=== PATIENT | male | born 1970 | race African-American/Black ===

== ENCOUNTER 2025-01-21 17:54 | Inpatient (IN) | payer MEDICARE, MEDICAID ==
[~2025-01-21] VITALS: Ht 182.9 cm; Wt 103.4 kg
[2025-01-21 17:57] VITALS: O2SAT 97
[2025-01-21] MEDS: PIPERACILLIN/TAZO 3.375G/50ML 50 ML IV ONE (19:03)
[2025-01-21] MEDS: SODIUM CHLORIDE 0.9% 1,000 ML IV ONE ×3 (19:03→23:30)
[2025-01-21] MEDS: KETOROLAC 15MG/ML VIAL IV ONE (19:04)
[2025-01-21] MEDS: ACETAMINOPHEN 500MG TABLET PO ONE (19:04)
[2025-01-21 19:07] LABS: BASOPHILS % 0.8 % (0.0-2.0); EOSINOPHILS % 0.2 % (0.0-5.0); HEMATOCRIT. 27.7 % (42.0-52.0); HEMOGLOBIN. 8.8 g/dL (14.0-18.0); LYMPHOCYTES % 17.6 % (20.0-50.0); MEAN PLATELET VOLUME 6.7 fl (7.4-10.4); MONOCYTES % 9.3 % (2.0-8.0); NEUTROPHILS % 72.1 % (40.0-76.0); PLATELET 627 x1000/uL (130-400); RED BLOOD CELL COUNT 3.48 mill/uL (4.7-6.1); RED CELL DISTRIBUTION WIDTH 18.8 % (11.6-14.6)
[2025-01-21 19:24] LABS: CREATININE 1.1 mg/dL (0.6-1.3); UREA NITROGEN BLOOD 16 mg/dL (9-23)
[2025-01-21 19:25] LABS: TROPONIN I HIGH SENSITIVITY 6 ng/L (3.0-53)
[2025-01-21 19:26] LABS: ASPARTATE AMINOTRANSFERASE 17 IU/L (<34); BILIRUBIN DIRECT < 0.1 mg/dL (<=3.0); BILIRUBIN TOTAL 0.2 mg/dL (0.1-1.0); INR 1.1; PROTEIN TOTAL 8.1 g/dL (6.0-8.3)
[2025-01-21] MEDS: VANCOMYCIN 1G PREMIX 200 ML IV ONE (20:18)
[2025-01-21] MEDS: SODIUM CHLORIDE 0.9% 500 ML IV ONE (20:29)
[2025-01-21] MEDS: MORPHINE SULFATE 4 MG/ML INJ (FOR IV/IM USE) IV ONE (20:30)
[2025-01-21] MEDS ORDERED: NOREPINEPHRINE 8 MG in DEXT 5% WATER 242 ML IV PRN (22:15)
[2025-01-21] MEDS: NOREPINEPHRINE 8MG/250ML PMX 250 ML IV PRN (22:27)
[2025-01-21] MEDS ORDERED: MAGNESIUM/ALUMINUM HYDROXIDE/SIMETHICONE 30ML UDC PO PRN (23:30)
[2025-01-21] MEDS ORDERED: NOREPINEPHRINE 32 MG in DEXT 5% WATER 218 ML IV PRN (23:30)
[2025-01-21] MEDS ORDERED: ONDANSETRON HCL 4MG/2ML INJ IV PRN (23:30)
[2025-01-21] MEDS ORDERED: CLONIDINE 0.1MG TABLET PO PRN (23:30)
[2025-01-21] MEDS ORDERED: PHENYLEPHRINE 50 MG in SODIUM CHLORIDE 0.9% 245 ML IV PRN (23:30)
[2025-01-21] MEDS ORDERED: IPRATROPIUM/ALBUTEROL 0.5-3(2.5)MG/3ML NEB HHN PRN (23:30)
[2025-01-21] MEDS ORDERED: GUAIFENESIN 200MG/10ML SUGAR FREE UDC PO PRN (23:30)
[2025-01-21] MEDS ORDERED: ACETAMINOPHEN 325MG TABLET PO PRN ×2 (23:30)
[2025-01-21] MEDS ORDERED: VASOPRESSIN 20 UNIT in SODIUM CHLORIDE 0.9% 99 ML IV PRN (23:30)
[2025-01-21 23:33] LABS: CLARITY URINE CLEAR (CLEAR); COLOR URINE YELLOW (YELLOW); GLUCOSE URINE NEGATIVE (NEGATIVE); KETONES URINE TRACE (NEGATIVE); LEUKOCYTE ESTERASE URINE 2+ (NEGATIVE); NITRITE URINE NEGATIVE (NEGATIVE); OCCULT BLOOD URINE 1+ (NEGATIVE); PH URINE 6.0 (4.5-8.0); PROTEIN URINE 1+ (NEGATIVE); SPECIFIC GRAVITY URINE 1.030 (1.005-1.030); UROBILINOGEN URINE 1.0 E.U./dL (0.2-1.0)
[2025-01-22] VITALS (48 sets, daily range): BP systolic 89–126; BP diastolic 48–91; PULSE 61–101; RESP 13–26; TEMP 36.5–36.8; O2SAT 94–100
[2025-01-22 00:20] LABS: SQUAMOUS EPITHELIAL CELL URINE FEW /lpf (RARE/1+)
[2025-01-22 00:21] LABS: BACTERIA URINE TRACE; WBC URINE 25-50 /hpf (0-2)
[2025-01-22] MEDS: ENOXAPARIN 120MG/0.8ML SYR SUBCUT SCH (02:29)
[2025-01-22] MEDS: VANCOMYCIN 1GM/200ML PMX (BAXTER) IV SCH ×2 (05:01→18:07)
[2025-01-22] MEDS: SODIUM CHLORIDE 0.9% 1,000 ML IV SCH (05:28)
[2025-01-22] MEDS: NOREPINEPHRINE 32 MG in DEXT 5% WATER 218 ML IV PRN (07:03)
[2025-01-22] MEDS: MAGNESIUM 1 G PREMIX 100 ML IV NR (09:26)
[2025-01-22] MEDS: PIPERACILLIN/TAZO 3.375G/50ML 50 ML IV SCH (09:26)
[2025-01-22] MEDS: DICLOFENAC SODIUM 1% GEL 50GM TOP SCH (09:28)
[2025-01-22] MEDS ORDERED: MIDODRINE HCL 5MG TABLET PO PRN (10:00)
[2025-01-22] MEDS ORDERED: TRAMADOL 50MG TABLET PO PRN (10:00)
[2025-01-22 10:51] LABS: CREATINE KINASE MB FRACTION 0.9 ng/mL (0.5-3.6); TROPONIN I HIGH SENSITIVITY 8 ng/L (3.0-53)
[2025-01-22 10:56] LABS: CREATININE 0.8 mg/dL (0.6-1.3); LDL CHOLESTEROL 48 mg/dL (5-100); T4 FREE 0.87 ng/dL (0.89-1.76); TRIGLYCERIDE 46 mg/dL (0-150); UREA NITROGEN BLOOD 13 mg/dL (9-23)
[2025-01-22] MEDS: OXYCODONE HCL 10MG TABLET PO PRN (13:34)
[2025-01-22 13:42] LABS: *AMPHETAMINES SCREEN URINE NEGATIVE (NEGATIVE); *BARBITURATES SCREEN URINE NEGATIVE (NEGATIVE); *BENZODIAZEPINES SCREEN URINE NEGATIVE (NEGATIVE); *COCAINE SCREEN URINE PRESUMPTIVE POSITIVE (NEGATIVE); CANNABINOID URINE SCREEN PRESUMPTIVE POSITIVE (NEGATIVE); METHADONE URINE SCREEN NEGATIVE (NEGATIVE); OPIATES URINE SCREEN PRESUMPTIVE POSITIVE (NEGATIVE); PHENCYCLIDINE URINE SCREEN NEGATIVE (NEGATIVE)
[2025-01-22 13:43] LABS: ECSTASY MDMA SCREEN URINE NEGATIVE (NEGATIVE)
[2025-01-22 17:08] LABS: BASOPHILS % 0.8 % (0.0-2.0); EOSINOPHILS % 1.2 % (0.0-5.0); HEMATOCRIT. 27.5 % (42.0-52.0); HEMOGLOBIN. 8.2 g/dL (14.0-18.0); LYMPHOCYTES % 29.1 % (20.0-50.0); MEAN PLATELET VOLUME 6.5 fl (7.4-10.4); MONOCYTES % 10.1 % (2.0-8.0); NEUTROPHILS % 58.8 % (40.0-76.0); PLATELET 517 x1000/uL (130-400); RED BLOOD CELL COUNT 3.22 mill/uL (4.7-6.1); RED CELL DISTRIBUTION WIDTH 19.8 % (11.6-14.6)
[2025-01-22 17:22] LABS: CREATINE KINASE MB FRACTION < 0.5 ng/mL (0.5-3.6)
[2025-01-22 17:26] LABS: FOLIC ACID (FOLATE) SERUM > 20.00 ng/mL (>5.38)
[2025-01-22 17:27] LABS: VITAMIN B12 SERUM 724 pg/mL (211-911)
[2025-01-22 17:38] LABS: TROPONIN I HIGH SENSITIVITY 5 ng/L (3.0-53)
[2025-01-22] MEDS ORDERED: INFLUENZA VACCINE 05/PF 0.5 ML SYRINGE IM ONE (18:00)
[2025-01-22] MEDS ORDERED: PNEUMOCOCCAL 20-VAL CONJ-DIP CRM 0.5ML IM ONE (18:00)
[2025-01-22] MEDS: ENOXAPARIN 100MG/ML SYR SUBCUT SCH (21:25)
[2025-01-23] VITALS: BP 85/50; PULSE 90; RESP 20; TEMP 36.7; O2SAT 93
[2025-01-23] MEDS: MIDODRINE HCL 5MG TABLET PO PRN (05:24)
[2025-01-23 08:00] VITALS: BP 110/61; PULSE 74; RESP 18; TEMP 36.7; O2SAT 99
[2025-01-23 12:00] VITALS: BP 105/57; PULSE 71; RESP 18; TEMP 36.7; O2SAT 97
[2025-01-23 12:41] LABS: CREATININE 0.9 mg/dL (0.6-1.3)
[2025-01-23 12:42] LABS: UREA NITROGEN BLOOD 11 mg/dL (9-23)
[2025-01-23] MEDS: VANCOMYCIN 1.25GM/250ML IV SCH (14:41)
[2025-01-23 16:00] VITALS: BP 98/51; PULSE 68; RESP 18; TEMP 36.7; O2SAT 98
[2025-01-23] MEDS ORDERED: DICLOFENAC SODIUM 1% GEL 50GM TOP PRN (17:30)
[2025-01-23 20:00] VITALS: BP 115/54; PULSE 81; RESP 20; TEMP 36.8; O2SAT 97
[2025-01-23] MEDS: ENOXAPARIN 30MG/0.3ML SYR SUBCUT SCH (20:57)
[2025-01-24] VITALS: BP 91/50; PULSE 85; RESP 20; TEMP 37.2; O2SAT 90
[2025-01-24 04:00] VITALS: BP 99/55; PULSE 79; RESP 19; TEMP 36.8; O2SAT 91
[2025-01-24 07:30] LABS: PLATELET 515 x1000/uL (130-400); RED BLOOD CELL COUNT 3.17 mill/uL (4.7-6.1); RED CELL DISTRIBUTION WIDTH 19.4 % (11.6-14.6)
[2025-01-24 07:46] LABS: CREATININE 0.9 mg/dL (0.6-1.3); UREA NITROGEN BLOOD 11 mg/dL (9-23)
[2025-01-24 08:00] VITALS: BP 99/52; PULSE 76; RESP 20; TEMP 36.4; O2SAT 100
[2025-01-24 12:00] VITALS: BP 109/61; PULSE 67; RESP 20; TEMP 36.7; O2SAT 97
[2025-01-24 16:00] VITALS: BP 141/68; PULSE 77; RESP 20; TEMP 36.5; O2SAT 98
[2025-01-24] MEDS: DOCUSATE SODIUM 100MG CAPSULE PO PRN (18:19)
[2025-01-24 20:00] VITALS: BP 93/44; PULSE 83; RESP 18; TEMP 37; O2SAT 99
[2025-01-24] MEDS: VANCOMYCIN 1.25GM/250ML IV SCH (22:18)
[2025-01-25] VITALS: BP 93/42; PULSE 75; RESP 18; TEMP 36.7; O2SAT 99
[2025-01-25 04:00] VITALS: BP 118/60; PULSE 66; RESP 18; TEMP 36.4; O2SAT 99
[2025-01-25 08:00] VITALS: BP 99/54; PULSE 92; RESP 18; TEMP 36.6; O2SAT 96
[2025-01-25 11:48] LABS: PLATELET 529 x1000/uL (130-400); RED BLOOD CELL COUNT 3.09 mill/uL (4.7-6.1); RED CELL DISTRIBUTION WIDTH 19.3 % (11.6-14.6)
[2025-01-25 11:57] LABS: CREATININE 1.1 mg/dL (0.6-1.3); UREA NITROGEN BLOOD 12 mg/dL (9-23)
[2025-01-25 12:00] VITALS: BP 112/56; PULSE 96; RESP 18; TEMP 36.7; O2SAT 96
[2025-01-25 16:00] VITALS: BP 122/68; PULSE 70; RESP 18; TEMP 36.5; O2SAT 98
[2025-01-25 20:00] VITALS: BP 120/70; PULSE 90; RESP 20; TEMP 36.4; O2SAT 98
[2025-01-26] VITALS: BP 115/60; PULSE 85; RESP 20; TEMP 36.1; O2SAT 98
[2025-01-26 04:00] VITALS: BP 94/52; PULSE 74; RESP 17; TEMP 36.6; O2SAT 99
[2025-01-26 08:00] VITALS: BP 100/65; PULSE 96; RESP 23; TEMP 36.3; O2SAT 95
[2025-01-26 08:04] LABS: BASOPHILS % 0.9 % (0.0-2.0); EOSINOPHILS % 2.2 % (0.0-5.0); HEMATOCRIT. 25.0 % (42.0-52.0); HEMOGLOBIN. 8.1 g/dL (14.0-18.0); LYMPHOCYTES % 29.4 % (20.0-50.0); MEAN PLATELET VOLUME 7.4 fl (7.4-10.4); MONOCYTES % 10.9 % (2.0-8.0); NEUTROPHILS % 56.6 % (40.0-76.0); PLATELET 645 x1000/uL (130-400); RED BLOOD CELL COUNT 3.20 mill/uL (4.7-6.1); RED CELL DISTRIBUTION WIDTH 20.0 % (11.6-14.6)
[2025-01-26 12:00] VITALS: BP 99/56; PULSE 87; RESP 20; TEMP 36.8; O2SAT 97
[2025-01-26 16:00] VITALS: BP 113/59; PULSE 74; RESP 20; TEMP 37; O2SAT 96
[2025-01-26 20:00] VITALS: BP 119/66; PULSE 80; RESP 20; TEMP 36.8; O2SAT 98
[2025-01-27] VITALS: BP 115/60; PULSE 102; RESP 20; TEMP 36.7; O2SAT 98
[2025-01-27 04:00] VITALS: BP 114/75; PULSE 89; RESP 18; TEMP 36.7; O2SAT 98
[2025-01-27 08:00] VITALS: BP 110/67; PULSE 90; RESP 18; TEMP 36.4; O2SAT 98
[2025-01-27 11:12] LABS: PLATELET 613 x1000/uL (130-400); RED BLOOD CELL COUNT 3.55 mill/uL (4.7-6.1); RED CELL DISTRIBUTION WIDTH 19.1 % (11.6-14.6)
[2025-01-27 11:30] LABS: CREATININE 1.0 mg/dL (0.6-1.3)
[2025-01-27 11:31] LABS: UREA NITROGEN BLOOD 17 mg/dL (9-23)
[2025-01-27 12:00] VITALS: BP 112/71; PULSE 111; RESP 20; TEMP 36.7; O2SAT 99
[2025-01-27] MEDS ORDERED: LIDOCAINE HCL 1% 10 MG/ML 10ML VIAL ONE (13:37)
[2025-01-27 16:00] VITALS: BP 116/70; PULSE 91; RESP 18; TEMP 36.7; O2SAT 100
[2025-01-27] MEDS: AMPICILLIN/SULBACTAM 3G in SODIUM CHLORIDE 0.9% 100ML IV SCH (17:20)
[2025-01-27 20:00] VITALS: BP 109/55; PULSE 82; RESP 20; TEMP 37.2; O2SAT 98
[2025-01-27] MEDS ORDERED: SULFAMETHOXAZOLE/TRIMETHOPRIM 800/160MG TABLET PO SCH (21:00)
[2025-01-28] VITALS: BP 111/70; PULSE 78; RESP 18; TEMP 37; O2SAT 96
[2025-01-28 04:00] VITALS: BP 115/57; PULSE 75; RESP 18; TEMP 37; O2SAT 97
[2025-01-28] MEDS ORDERED: LIDOCAINE HCL 1% 10 MG/ML 10ML VIAL ONE (07:11)
[2025-01-28 08:00] VITALS: BP 147/69; PULSE 88; RESP 18; TEMP 36.1; O2SAT 93
[2025-01-28] MEDS ORDERED: IOHEXOL-350 100 ML BOTTLE ONE (08:52)
[2025-01-28] MEDS ORDERED: IOHEXOL-350 50 ML BOTTLE ONE (08:53)
[2025-01-28] MEDS ORDERED: OXYCODONE HCL 20MG TABLET SR 12HR PO ONE (09:45)
[2025-01-28] MEDS ORDERED: OXYCODONE HCL 10MG TABLET SR 12HR PO ONE (09:45)
[2025-01-28] MEDS: OXYCODONE HCL 10MG TABLET PO SCH (10:02)
[2025-01-28 12:00] VITALS: BP 102/59; PULSE 74; RESP 18; TEMP 36.7; O2SAT 93
[2025-01-28 16:00] VITALS: BP 115/70; PULSE 90; RESP 20; TEMP 36.9; O2SAT 99
[2025-01-28] MEDS: VANCOMYCIN 1GM/200ML PMX (BAXTER) IV SCH (16:25)
[2025-01-28] MEDS ORDERED: NALOXONE HCL 0.4MG/ML VIAL IV PRN (18:00)
[2025-01-28] MEDS: OXYCODONE HCL 10MG TABLET PO PRN (18:04)
[2025-01-28 20:00] VITALS: BP 112/60; PULSE 87; RESP 18; TEMP 36.7; O2SAT 97
[2025-01-29] VITALS: BP 115/70; PULSE 80; RESP 20; TEMP 36.7; O2SAT 98
[2025-01-29 04:00] VITALS: BP 129/80; PULSE 72; RESP 20; TEMP 36.7; O2SAT 98
[2025-01-29 07:12] LABS: CREATININE 1.0 mg/dL (0.6-1.3)
[2025-01-29 07:13] LABS: UREA NITROGEN BLOOD 15 mg/dL (9-23)
[2025-01-29 08:00] VITALS: BP 128/72; PULSE 82; RESP 15; TEMP 36.6; O2SAT 96
[2025-01-29 11:14] LABS: PLATELET 492 x1000/uL (130-400); RED BLOOD CELL COUNT 3.22 mill/uL (4.7-6.1); RED CELL DISTRIBUTION WIDTH 19.0 % (11.6-14.6)
[2025-01-29 12:00] VITALS: BP 104/56; PULSE 90; RESP 18; TEMP 36.4; O2SAT 99
[2025-01-29] MEDS: OXYCODONE HCL 10MG TABLET PO PRN (14:26)
[2025-01-29 16:00] VITALS: BP 110/63; PULSE 81; RESP 17; TEMP 36.9; O2SAT 100
[2025-01-29] MEDS ORDERED: VANCOMYCIN 1.25GM/250ML IV SCH (16:00)
[2025-01-29 20:00] VITALS: BP 123/69; PULSE 83; RESP 18; TEMP 36.7; O2SAT 93
[2025-01-30] VITALS: BP 102/56; PULSE 76; RESP 19; TEMP 36.9; O2SAT 95
[2025-01-30 12:00] VITALS: BP 107/82; PULSE 76; RESP 18; TEMP 36.7; O2SAT 98
[2025-01-30] MEDS: BISACODYL 10MG SUPP PR PRN (13:36)
== END 2025-01-30 15:58 | DRG 853 ==
LOC: ER 17:54 → MICUSO 22:14 → EDBEDREQTM 22:29 → EDBEDREQ 22:29 → EDBEDREQSVC 22:29 → ENRESERV 01-22 05:50 → 8WST 01-22 18:45 → 4WST 01-30 06:09
PROVIDERS: ADMIT Internal Medicine; ATTEND Internal Medicine
PROC: 0JBQ0ZZ Excision of Right Foot Subcutaneous Tissue and Fascia, Open Approach (ICD-10-PCS; principal; 2025-01-27)
PROC: 0JBR0ZZ Excision of Left Foot Subcutaneous Tissue and Fascia, Open Approach (ICD-10-PCS; 2025-01-27)
PROC: 02HV33Z Insertion of Infusion Device into Superior Vena Cava, Percutaneous Approach (ICD-10-PCS; 2025-01-28)
PROC: B548ZZA Ultrasonography of Superior Vena Cava, Guidance (ICD-10-PCS; 2025-01-28)
DX: A41.9 Sepsis, unspecified organism (principal); L89.154 Pressure ulcer of sacral region, stage 4; L89.524 Pressure ulcer of left ankle, stage 4; L89.894 Pressure ulcer of other site, stage 4; L89.624 Pressure ulcer of left heel, stage 4; L89.614 Pressure ulcer of right heel, stage 4; L89.324 Pressure ulcer of left buttock, stage 4; L89.314 Pressure ulcer of right buttock, stage 4; R65.21 Severe sepsis with septic shock; G82.20 Paraplegia, unspecified; E87.1 Hypo-osmolality and hyponatremia; D50.9 Iron deficiency anemia, unspecified; F17.210 Nicotine dependence, cigarettes, uncomplicated; N39.0 Urinary tract infection, site not specified; B95.2 Enterococcus as the cause of diseases classified elsewhere; I73.9 Peripheral vascular disease, unspecified; F19.10 Other psychoactive substance abuse, uncomplicated; K59.2 Neurogenic bowel, not elsewhere classified; E83.42 Hypomagnesemia; N31.9 Neuromuscular dysfunction of bladder, unspecified; L22 Diaper dermatitis; G62.9 Polyneuropathy, unspecified; G89.4 Chronic pain syndrome; Z86.718 Personal history of other venous thrombosis and embolism; Z86.73 Personal history of transient ischemic attack (TIA), and cerebral infarction without residual deficits; Z87.440 Personal history of urinary (tract) infections; Z88.1 Allergy status to other antibiotic agents; Z93.59 Other cystostomy status; Z99.3 Dependence on wheelchair
CPT/HCPCS: 36415; 36573; 71045; 71250; 74176; 75635; 80048; 80061; 80076; 80202; 80305; 81003; 82550; 82553; 82607; 82728; 82746; 83036; 83540; 83550; 83605; 83735; 83880; 84145; 84439; 84443; 84484; 85025; 85027; 87070; 87077; 87186; 93005; 93923; 93970; 97162; 97166; 97530; 99291; A4606; A6449; C1725; J0295; J1650; J1885; J2003; J2270; J2543; J3373; J3475; J3490; J7030; J7040; J7050; J7060; Q9967

== ENCOUNTER 2025-01-30 16:00 | Inpatient (IN) | payer MEDICARE, MEDICAID ==
[~2025-01-30] VITALS: Ht 182.9 cm; Wt 102.5 kg
[2025-01-30 16:30] VITALS: BP 112/69; PULSE 78; RESP 18; TEMP 36.5292
[2025-01-30] MEDS ORDERED: ONDANSETRON HCL 4MG/2ML INJ IV PRN (16:45)
[2025-01-30] MEDS ORDERED: MIDODRINE HCL 5MG TABLET PO PRN (16:45)
[2025-01-30] MEDS ORDERED: CLONIDINE 0.1MG TABLET PO PRN (16:45)
[2025-01-30] MEDS ORDERED: BISACODYL 10MG SUPP PR PRN (16:45)
[2025-01-30] MEDS ORDERED: ACETAMINOPHEN 650MG/20.3ML UDC PO PRN (16:45)
[2025-01-30] MEDS ORDERED: ACETAMINOPHEN 325MG TABLET PO PRN (16:45)
[2025-01-30] MEDS ORDERED: GUAIFENESIN 200MG/10ML SUGAR FREE UDC PO PRN (16:45)
[2025-01-30] MEDS ORDERED: DICLOFENAC SODIUM 1% GEL 50GM TOP PRN (16:45)
[2025-01-30] MEDS ORDERED: MAGNESIUM/ALUMINUM HYDROXIDE/SIMETHICONE 30ML UDC PO PRN (16:45)
[2025-01-30] MEDS ORDERED: NALOXONE HCL 0.4MG/ML 1ML VIAL IV PRN (16:45)
[2025-01-30 20:00] VITALS: BP 114/62; PULSE 74; RESP 20; TEMP 36.2; O2SAT 100
[2025-01-30] MEDS: ENOXAPARIN 30MG/0.3ML SYR SUBCUT SCH (21:21)
[2025-01-30] MEDS: OXYCODONE HCL 10MG TABLET PO PRN (21:21)
[2025-01-31 08:00] VITALS: BP 115/65; PULSE 70; RESP 19; TEMP 36.2; O2SAT 98
[2025-01-31] MEDS: BISACODYL 10MG SUPP PR SCH (09:00)
[2025-01-31] MEDS: DOCUSATE SODIUM 100MG CAPSULE PO PRN (09:07)
[2025-01-31 11:11] LABS: BASOPHILS % 1.0 % (0.0-2.0); EOSINOPHILS % 4.8 % (0.0-5.0); HEMATOCRIT. 28.1 % (42.0-52.0); HEMOGLOBIN. 8.7 g/dL (14.0-18.0); LYMPHOCYTES % 23.2 % (20.0-50.0); MEAN PLATELET VOLUME 6.7 fl (7.4-10.4); MONOCYTES % 9.8 % (2.0-8.0); NEUTROPHILS % 61.2 % (40.0-76.0); PLATELET 462 x1000/uL (130-400); RED BLOOD CELL COUNT 3.58 mill/uL (4.7-6.1); RED CELL DISTRIBUTION WIDTH 19.2 % (11.6-14.6)
[2025-01-31 11:28] LABS: CREATININE 1.0 mg/dL (0.6-1.3); UREA NITROGEN BLOOD 16 mg/dL (9-23)
[2025-01-31 11:30] LABS: ASPARTATE AMINOTRANSFERASE 16 IU/L (<34); BILIRUBIN TOTAL < 0.2 mg/dL (0.1-1.0); PROTEIN TOTAL 7.8 g/dL (6.0-8.3)
[2025-01-31] MEDS: MORPHINE SULFATE 4 MG/ML INJ (FOR IV/IM USE) IV NR (13:50)
[2025-01-31 20:00] VITALS: BP 107/60; PULSE 95; RESP 18; TEMP 36.4; O2SAT 96
[2025-01-31] MEDS: DOCUSATE SODIUM 250MG CAPSULE PO SCH (20:24)
[2025-02-01 08:00] VITALS: BP 106/56; PULSE 74; RESP 20; TEMP 36.3; O2SAT 95
[2025-02-01 08:49] LABS: BASOPHILS % 1.0 % (0.0-2.0); EOSINOPHILS % 5.2 % (0.0-5.0); HEMATOCRIT. 25.6 % (42.0-52.0); HEMOGLOBIN. 8.0 g/dL (14.0-18.0); LYMPHOCYTES % 37.3 % (20.0-50.0); MEAN PLATELET VOLUME 7.1 fl (7.4-10.4); MONOCYTES % 8.9 % (2.0-8.0); NEUTROPHILS % 47.6 % (40.0-76.0); PLATELET 446 x1000/uL (130-400); RED BLOOD CELL COUNT 3.23 mill/uL (4.7-6.1); RED CELL DISTRIBUTION WIDTH 19.2 % (11.6-14.6)
[2025-02-01 09:05] LABS: CREATININE 0.9 mg/dL (0.6-1.3); UREA NITROGEN BLOOD 16 mg/dL (9-23)
[2025-02-01 09:07] LABS: ASPARTATE AMINOTRANSFERASE 13 IU/L (<34); BILIRUBIN TOTAL < 0.2 mg/dL (0.1-1.0); PROTEIN TOTAL 7.4 g/dL (6.0-8.3)
[2025-02-01 09:08] LABS: FOLIC ACID (FOLATE) SERUM 9.52 ng/mL (>5.38); VITAMIN B12 SERUM 369 pg/mL (211-911)
[2025-02-01] MEDS: MULTIVITAMINS,THER W-MINERALS TABLET PO SCH (11:15)
[2025-02-01] MEDS: ASCORBIC ACID 500 MG TABLET PO SCH (11:16)
[2025-02-01] MEDS ORDERED: ASCORBIC ACID 500 MG TABLET PO SCH (14:30)
[2025-02-01 20:00] VITALS: BP 96/50; PULSE 75; RESP 20; TEMP 36.5; O2SAT 96
[2025-02-02 08:00] VITALS: BP 102/54; PULSE 71; RESP 17; TEMP 36.6; O2SAT 99
[2025-02-02] MEDS: FERROUS SULFATE 325MG TABLET PO SCH (09:00)
[2025-02-02] MEDS: CYANOCOBALAMIN 1000MCG/ML VIAL IM SCH (09:00)
[2025-02-02 20:00] VITALS: BP 109/64; PULSE 70; RESP 18; TEMP 37.7; O2SAT 98
[2025-02-03] VITALS: BP 108/69; PULSE 71; RESP 19; TEMP 36.4; O2SAT 98
[2025-02-03 04:00] VITALS: BP 108/62; PULSE 76; RESP 18; TEMP 36.7; O2SAT 97
[2025-02-03] MEDS ORDERED: OXYCODONE HCL 10MG TABLET PO PRN (04:45)
[2025-02-03 08:00] VITALS: BP 110/68; PULSE 96; RESP 18; TEMP 36.7; O2SAT 98
[2025-02-03] MEDS: OXYCODONE HCL 10MG TABLET PO PRN (10:16)
[2025-02-03 20:00] VITALS: BP 124/69; PULSE 76; RESP 18; TEMP 36.6; O2SAT 98
[2025-02-04 08:00] VITALS: BP 113/54; PULSE 95; RESP 18; TEMP 36.1; O2SAT 98
[2025-02-04] MEDS: ERGOCALCIFEROL 50000UNITS CAPSULE PO SCH (18:46)
[2025-02-04 20:00] VITALS: BP 106/60; PULSE 71; RESP 18; TEMP 37.2; O2SAT 100
[2025-02-05 08:00] VITALS: BP 102/56; PULSE 69; RESP 20; TEMP 36.4; O2SAT 100
[2025-02-05 20:00] VITALS: BP 109/55; PULSE 81; RESP 19; TEMP 36.4; O2SAT 95
[2025-02-05] MEDS: MELATONIN 3MG TABLET PO NR (22:26)
[2025-02-06 08:00] VITALS: BP 97/59; PULSE 70; RESP 20; TEMP 36.6; O2SAT 96
[2025-02-06 20:00] VITALS: BP 109/58; PULSE 62; RESP 18; TEMP 36.6; O2SAT 99
[2025-02-07 08:00] VITALS: BP 100/53; PULSE 67; RESP 20; TEMP 36.5; O2SAT 96
[2025-02-07 20:00] VITALS: BP 94/53; PULSE 73; RESP 18; TEMP 36.4; O2SAT 96
[2025-02-08] VITALS: BP 103/51; PULSE 66; RESP 18; TEMP 36.3; O2SAT 99
[2025-02-08 08:00] VITALS: BP 100/52; PULSE 72; RESP 18; TEMP 36.4; O2SAT 98
[2025-02-08 20:00] VITALS: BP 97/54; PULSE 73; RESP 18; TEMP 36.6; O2SAT 96
[2025-02-08] MEDS: OXYCODONE HCL 10MG TABLET PO PRN (20:23)
[2025-02-09 08:00] VITALS: BP 100/56; PULSE 56; RESP 18; TEMP 36.6; O2SAT 96
[2025-02-09 20:00] VITALS: BP 114/72; PULSE 82; RESP 18; TEMP 36.3; O2SAT 100
[2025-02-09 21:48] VITALS: BP 114/72; PULSE 82; RESP 18; TEMP 36.3; O2SAT 100
[2025-02-10 08:00] VITALS: BP 106/60; PULSE 64; RESP 20; TEMP 36.4; O2SAT 99
[2025-02-10 20:00] VITALS: BP 110/66; PULSE 88; RESP 18; TEMP 36.6; O2SAT 96
[2025-02-11 08:00] VITALS: BP 109/68; PULSE 73; RESP 20; TEMP 36.2; O2SAT 98
[2025-02-11 20:00] VITALS: BP 114/56; PULSE 84; RESP 19; TEMP 36.7; O2SAT 98
[2025-02-12 08:00] VITALS: BP 106/50; PULSE 67; RESP 18; TEMP 36.7; O2SAT 95
[2025-02-12 08:26] LABS: BASOPHILS % 0.9 % (0.0-2.0); EOSINOPHILS % 4.2 % (0.0-5.0); HEMATOCRIT. 31.8 % (42.0-52.0); HEMOGLOBIN. 10.0 g/dL (14.0-18.0); LYMPHOCYTES % 43.5 % (20.0-50.0); MEAN PLATELET VOLUME 7.1 fl (7.4-10.4); MONOCYTES % 10.2 % (2.0-8.0); NEUTROPHILS % 41.2 % (40.0-76.0); PLATELET 328 x1000/uL (130-400); RED BLOOD CELL COUNT 3.94 mill/uL (4.7-6.1); RED CELL DISTRIBUTION WIDTH 22.3 % (11.6-14.6)
[2025-02-12 08:41] LABS: CREATININE 0.9 mg/dL (0.6-1.3); UREA NITROGEN BLOOD 19 mg/dL (9-23)
[2025-02-12 08:57] LABS: ADD RBC MORPHOLOGY YES
[2025-02-12 17:39] LABS: PLATELET ESTIMATE NORMAL
[2025-02-12 20:00] VITALS: BP 112/63; PULSE 76; RESP 19; TEMP 36.8; O2SAT 95
[2025-02-13 08:00] VITALS: BP 133/61; PULSE 83; RESP 18; TEMP 36.4; O2SAT 97
[2025-02-13 20:00] VITALS: BP 122/67; PULSE 93; RESP 18; TEMP 36.7; O2SAT 95
[2025-02-14 08:00] VITALS: BP 102/45; PULSE 51; RESP 18; TEMP 36.1; O2SAT 100
[2025-02-14 13:33] VITALS: BP 133/81; PULSE 83; RESP 18; TEMP 97.5
[2025-02-15] MEDS ORDERED: OXYC-582 MT (02:16)
== END 2025-02-14 15:00 | DRG 40 ==
PROVIDERS: ADMIT Physical Medicine & Rehabilitation Spinal Cord Injury Medicine; ATTEND Internal Medicine
PROC: 0JBR0ZZ Excision of Left Foot Subcutaneous Tissue and Fascia, Open Approach (ICD-10-PCS; principal; 2025-02-11)
DX: S24.102A Unspecified injury at T2-T6 level of thoracic spinal cord, initial encounter (principal); A41.9 Sepsis, unspecified organism; L89.154 Pressure ulcer of sacral region, stage 4; L89.324 Pressure ulcer of left buttock, stage 4; L89.314 Pressure ulcer of right buttock, stage 4; L89.524 Pressure ulcer of left ankle, stage 4; L89.614 Pressure ulcer of right heel, stage 4; L89.624 Pressure ulcer of left heel, stage 4; L89.894 Pressure ulcer of other site, stage 4; R65.21 Severe sepsis with septic shock; K59.2 Neurogenic bowel, not elsewhere classified; F33.1 Major depressive disorder, recurrent, moderate; G82.20 Paraplegia, unspecified; E87.1 Hypo-osmolality and hyponatremia; M86.68 Other chronic osteomyelitis, other site; N39.0 Urinary tract infection, site not specified; D50.9 Iron deficiency anemia, unspecified; F19.10 Other psychoactive substance abuse, uncomplicated; F17.210 Nicotine dependence, cigarettes, uncomplicated; G89.4 Chronic pain syndrome; N31.9 Neuromuscular dysfunction of bladder, unspecified; Z87.440 Personal history of urinary (tract) infections; L98.429 Non-pressure chronic ulcer of back with unspecified severity; Z99.3 Dependence on wheelchair; E83.42 Hypomagnesemia; F41.1 Generalized anxiety disorder; Y24.8XXD Other firearm discharge, undetermined intent, subsequent encounter; Z86.718 Personal history of other venous thrombosis and embolism; Z88.1 Allergy status to other antibiotic agents; G62.9 Polyneuropathy, unspecified; M54.50 Low back pain, unspecified; S06.9X0D Unspecified intracranial injury without loss of consciousness, subsequent encounter; F14.10 Cocaine abuse, uncomplicated; R25.2 Cramp and spasm
CPT/HCPCS: 36415; 80048; 80053; 82306; 82607; 82728; 82746; 83036; 83540; 83550; 84134; 84443; 85025; 97110; 97162; 97166; 97530; 97535; 97542; A4606; A6449; J1650; J2270; J3420; A5200

== ENCOUNTER 2025-02-14 16:37 | Inpatient (IN) | payer MEDICARE, MEDICAID ==
[~2025-02-14] VITALS: Ht 180.3 cm; Wt 98.2 kg
[2025-02-14 16:43] VITALS: O2SAT 98
[2025-02-14 18:57] LABS: BASOPHILS % 0.5 % (0.0-2.0); EOSINOPHILS % 1.9 % (0.0-5.0); HEMATOCRIT. 32.2 % (42.0-52.0); HEMOGLOBIN. 10.3 g/dL (14.0-18.0); LYMPHOCYTES % 27.3 % (20.0-50.0); MEAN PLATELET VOLUME 7.3 fl (7.4-10.4); MONOCYTES % 6.9 % (2.0-8.0); NEUTROPHILS % 63.4 % (40.0-76.0); PLATELET 310 x1000/uL (130-400); RED BLOOD CELL COUNT 4.00 mill/uL (4.7-6.1); RED CELL DISTRIBUTION WIDTH 23.0 % (11.6-14.6)
[2025-02-14 18:58] LABS: ADD RBC MORPHOLOGY YES
[2025-02-14 19:07] LABS: CREATININE 1.0 mg/dL (0.6-1.3); UREA NITROGEN BLOOD 22 mg/dL (9-23)
[2025-02-14 19:12] LABS: PLATELET ESTIMATE NORMAL
[2025-02-14 19:13] LABS: INR 1.0
[2025-02-14] MEDS ORDERED: VANCOMYCIN 1000MG/250ML 250 ML IV STA (21:48)
[2025-02-14] MEDS: VANCOMYCIN 1G PREMIX 200 ML IV NR (23:04)
[2025-02-14] MEDS: MORPHINE SULFATE 4 MG/ML INJ (FOR IV/IM USE) IM ONE (23:20)
[2025-02-15] VITALS (7 sets, daily range): BP systolic 104–134; BP diastolic 54–74; PULSE 51–76; RESP 17–20; TEMP 35.8–37.1; O2SAT 96–99
[2025-02-15] MEDS ORDERED: KETOROLAC 30MG/ML VIAL IV PRN (00:30)
[2025-02-15] MEDS ORDERED: VANCOMYCIN 1.75GM PMX (XELLIA) 350 ML IV NR (02:00)
[2025-02-15] MEDS ORDERED: OXYC-582 MT (02:16)
[2025-02-15] MEDS: HYDROCODONE/ACETAMINOPHEN 5/325MG TABLET PO NR (02:45)
[2025-02-15 04:41] LABS: CLARITY URINE CLEAR (CLEAR); COLOR URINE YELLOW (YELLOW); GLUCOSE URINE NEGATIVE (NEGATIVE); KETONES URINE NEGATIVE (NEGATIVE); LEUKOCYTE ESTERASE URINE 3+ (NEGATIVE); NITRITE URINE NEGATIVE (NEGATIVE); OCCULT BLOOD URINE TRACE (NEGATIVE); PH URINE 6.5 (4.5-8.0); PROTEIN URINE TRACE (NEGATIVE); SPECIFIC GRAVITY URINE 1.020 (1.005-1.030); UROBILINOGEN URINE 1.0 E.U./dL (0.2-1.0)
[2025-02-15 05:08] LABS: *AMPHETAMINES SCREEN URINE NEGATIVE (NEGATIVE)
[2025-02-15 05:09] LABS: *BARBITURATES SCREEN URINE NEGATIVE (NEGATIVE); *BENZODIAZEPINES SCREEN URINE NEGATIVE (NEGATIVE); *COCAINE SCREEN URINE NEGATIVE (NEGATIVE); CANNABINOID URINE SCREEN PRESUMPTIVE POSITIVE (NEGATIVE); ECSTASY MDMA SCREEN URINE NEGATIVE (NEGATIVE); METHADONE URINE SCREEN NEGATIVE (NEGATIVE); OPIATES URINE SCREEN PRESUMPTIVE POSITIVE (NEGATIVE); PHENCYCLIDINE URINE SCREEN NEGATIVE (NEGATIVE)
[2025-02-15] MEDS: PIPERACILLIN/TAZO 3.375G/50ML 50 ML IV SCH (06:00)
[2025-02-15 06:15] LABS: SQUAMOUS EPITHELIAL CELL URINE NONE SEEN /lpf (RARE/1+)
[2025-02-15 06:17] LABS: BACTERIA URINE 3+; RBC URINE 0-2 /hpf (0-2)
[2025-02-15] MEDS: ENOXAPARIN 40MG/0.4ML SYR SUBCUT SCH (09:00)
[2025-02-15] MEDS: PANTOPRAZOLE SODIUM 40 MG/VIAL IV SCH (09:00)
[2025-02-15] MEDS: VANCOMYCIN 1GM/200ML PMX (BAXTER) IV SCH (15:00)
[2025-02-15] MEDS: OXYCODONE HCL 10MG TABLET PO PRN (16:32)
[2025-02-15] MEDS: SENNOSIDES/DOCUSATE SOD 8.6/50MG TABLET PO SCH (21:00)
[2025-02-15] MEDS: DOCUSATE SODIUM 100MG CAPSULE PO NR ×2 (23:33→23:34)
[2025-02-16] VITALS: BP 114/51; PULSE 61; RESP 18; TEMP 36.6; O2SAT 98
[2025-02-16 04:00] VITALS: BP 130/80; PULSE 62; RESP 18; TEMP 36.6; O2SAT 99
[2025-02-16 08:00] VITALS: BP 119/64; PULSE 59; RESP 16; TEMP 36.4; O2SAT 96
[2025-02-16] MEDS: DOCUSATE SODIUM 100MG CAPSULE PO SCH (09:47)
[2025-02-16] MEDS: POLYETHYLENE GLYCOL 3350 (17GM) 1 DOSE PACK PO SCH (09:47)
[2025-02-16 12:00] VITALS: BP 117/73; PULSE 72; RESP 17; TEMP 36.6; O2SAT 97
[2025-02-16 16:00] VITALS: BP 114/67; PULSE 66; RESP 17; TEMP 36.3; O2SAT 98
[2025-02-16 20:00] VITALS: BP 117/61; PULSE 70; RESP 20; TEMP 36.4; O2SAT 100
[2025-02-17] VITALS: BP 109/67; PULSE 63; RESP 20; TEMP 36.5; O2SAT 100
[2025-02-17 04:00] VITALS: BP 106/50; PULSE 50; RESP 20; TEMP 36.5; O2SAT 100
[2025-02-17 08:00] VITALS: BP 124/68; PULSE 56; RESP 15; TEMP 36.6; O2SAT 99
[2025-02-17 12:00] VITALS: BP 123/74; PULSE 66; RESP 18; TEMP 36.4; O2SAT 97
[2025-02-17 16:00] VITALS: BP 110/70; PULSE 95; RESP 19; TEMP 36.6; O2SAT 98
[2025-02-17 20:00] VITALS: BP 115/68; PULSE 62; RESP 18; TEMP 36.6; O2SAT 98
[2025-02-18] VITALS: BP 142/84; PULSE 73; RESP 19; TEMP 36.6; O2SAT 97
[2025-02-18 04:00] VITALS: BP 118/66; PULSE 67; RESP 19; TEMP 36.4; O2SAT 97
[2025-02-18 08:00] VITALS: BP 102/53; PULSE 58; RESP 16; RESP 18; TEMP 36.3; O2SAT 97
[2025-02-18 12:00] VITALS: BP 115/76; PULSE 67; RESP 17; TEMP 36.6; O2SAT 98
[2025-02-18 16:00] VITALS: BP 118/60; PULSE 57; RESP 16; TEMP 36.5; O2SAT 97
[2025-02-18 20:00] VITALS: BP 129/76; PULSE 66; RESP 20; TEMP 36.4; O2SAT 99
[2025-02-19] VITALS: BP 109/68; PULSE 102; RESP 20; TEMP 36.4; O2SAT 100
[2025-02-19 04:00] VITALS: BP 139/81; PULSE 73; RESP 20; TEMP 36.4; O2SAT 99
[2025-02-19 08:00] VITALS: BP 137/82; PULSE 59; RESP 17; TEMP 36.4; O2SAT 98
[2025-02-19 12:00] VITALS: BP 108/75; PULSE 97; RESP 16; TEMP 36.2; O2SAT 98
[2025-02-19 16:32] VITALS: BP 112/72; PULSE 92; RESP 17; TEMP 97.3
== END 2025-02-19 17:50 | DRG 571 ==
LOC: ER 16:37 → 6WST 21:48 → EDBEDREQ 21:52 → EDBEDREQSVC 21:52 → EDBEDREQTM 21:52 → ENRESERV 02-15 00:37
PROVIDERS: ADMIT Internal Medicine; ATTEND Internal Medicine
PROC: 0JBR0ZZ Excision of Left Foot Subcutaneous Tissue and Fascia, Open Approach (ICD-10-PCS; principal; 2025-02-18)
PROC: 0JBQ0ZZ Excision of Right Foot Subcutaneous Tissue and Fascia, Open Approach (ICD-10-PCS; 2025-02-18)
DX: L89.624 Pressure ulcer of left heel, stage 4 (principal); G82.20 Paraplegia, unspecified; M86.8X6 Other osteomyelitis, lower leg; K59.2 Neurogenic bowel, not elsewhere classified; D50.9 Iron deficiency anemia, unspecified; F17.210 Nicotine dependence, cigarettes, uncomplicated; L89.154 Pressure ulcer of sacral region, stage 4; L89.314 Pressure ulcer of right buttock, stage 4; L89.894 Pressure ulcer of other site, stage 4; L89.324 Pressure ulcer of left buttock, stage 4; L89.614 Pressure ulcer of right heel, stage 4; L89.514 Pressure ulcer of right ankle, stage 4; F19.10 Other psychoactive substance abuse, uncomplicated; I87.2 Venous insufficiency (chronic) (peripheral); N31.9 Neuromuscular dysfunction of bladder, unspecified; R53.81 Other malaise; G62.9 Polyneuropathy, unspecified; R25.2 Cramp and spasm; G89.4 Chronic pain syndrome; Z93.59 Other cystostomy status; Z87.440 Personal history of urinary (tract) infections; Z99.3 Dependence on wheelchair; Z88.1 Allergy status to other antibiotic agents
CPT/HCPCS: 36415; 80048; 80305; 81003; 82728; 83036; 83540; 83550; 84145; 85025; 93005; 93970; 97166; 97542; 99285; J1650; J2270; J2470; J3373